=== PATIENT | female | born 1955 | race Caucasian/White ===

== ENCOUNTER 2022-04-26 10:33 | Emergency (ER) | payer MEDICARE, OTHER ==
[2022-04-26] MEDS ORDERED: methylPREDNISolone Sodium Succinate 125 MG/2 ML SDV IVPUSH ONE (10:52)
[2022-04-26] MEDS ORDERED: Sodium Chloride 0.9% 10 ML Syringe FLUSH PRN (10:52)
[2022-04-26] MEDS ORDERED: Famotidine 20 MG/2 ML SDV IVPUSH ONE (10:52)
== END 2022-04-26 12:19 | disposition home or self-care (01) ==
LOC: JD.ED 10:33
DX: T78.1XXA Other adverse food reactions, not elsewhere classified, initial encounter (principal); E78.00 Pure hypercholesterolemia, unspecified; I10 Essential (primary) hypertension; Z79.899 Other long term (current) drug therapy
CPT/HCPCS: 96374; 96375; 99283; J2930; J3490

== ENCOUNTER 2023-06-15 07:33 | Day surgery (SDC) | payer MEDICARE, OTHER ==
[~2023-06-15 07:33] MED LIST: Lactated Ringers 1,000 ML IV SCH; Morphine 8 MG, EPINEPHrine 0.3 MG, Cefuroxime 750 MG, Ketorolac 30 MG, Sodium Chloride ... PRN
[2023-06-15] MEDS ORDERED: fentaNYL 100 MCG/2 ML SDV ONE (07:40)
[2023-06-15] MEDS ORDERED: Propofol 200 MG/20 ML SDV ONE (07:40)
[2023-06-15] MEDS ORDERED: Lactated Ringers 1,000 ML ONE (07:40)
[2023-06-15] MEDS ORDERED: ceFAZolin 2 GM Vial ONE (07:40)
[2023-06-15] MEDS ORDERED: Midazolam 1 MG/ML 2 ML SDV ONE (07:41)
[2023-06-15] MEDS ORDERED: Vancomycin 1 GM SDV ONE (08:04)
[2023-06-15] MEDS ORDERED: Tranexamic Acid 1,000 MG/10 ML Vial ONE (08:04)
[2023-06-15 08:50] LABS: INR 0.93
[2023-06-15 08:51] LABS: PTT,PARTIAL THROMBOPLSTIN TIME 24.2 SECONDS (21.7-31.4)
[2023-06-15] MEDS ORDERED: ePHEDrine 50 MG/ML SDV ONE (09:59)
[2023-06-15] MEDS ORDERED: Dexamethasone 4 MG/ML 5 ML MDV ONE (10:00)
[2023-06-15] MEDS ORDERED: Ondansetron 4 MG/2 ML SDV ONE (10:00)
[2023-06-15] MEDS ORDERED: Ketorolac 30 MG/ML SDV ONE (10:00)
[2023-06-15] MEDS ORDERED: Ketamine 200 MG/20 ML MDV ONE (10:02)
[2023-06-15] MEDS ORDERED: Ondansetron 4 MG/2 ML SDV IVPUSH PRN (10:10)
[2023-06-15] MEDS ORDERED: HYDROmorphone 0.5 MG/0.5 ML Syringe IVPUSH PRN (10:10)
[2023-06-15] MEDS ORDERED: fentaNYL 100 MCG/2 ML SDV IVPUSH PRN (10:10)
[2023-06-15] MEDS ORDERED: Acetaminophen/HYDROcodone 325-5 MG Tab PO ONE ×2 (11:52→14:15)
== END 2023-06-15 14:32 | disposition home or self-care (01) ==
LOC: JD.SDS 07:33
PROVIDERS: ATTEND Orthopaedic Surgery
DX: M16.11 Unilateral primary osteoarthritis, right hip (principal); G89.29 Other chronic pain; E78.5 Hyperlipidemia, unspecified; I10 Essential (primary) hypertension; K21.9 Gastro-esophageal reflux disease without esophagitis; G47.33 Obstructive sleep apnea (adult) (pediatric); Z79.82 Long term (current) use of aspirin; Z79.899 Other long term (current) drug therapy
CPT/HCPCS: 0055T; 27130; 36415; 73501; 85610; 85730; 86850; 86900; 86901; 97116; 97161; A9270; C1713; C1776; J0171; J0690; J0697; J1100; J1885; J2250; J2270; J2405; J2704; J3010; J3370; J7030; J7120; 01214; J3490